=== PATIENT | male | born 1995 | race Caucasian/White ===

== ENCOUNTER 2023-01-05 21:08 | Emergency (ER) | payer OTHER ==
[2023-01-05] MEDS ORDERED: SODIUM CHLORIDE 0.9% 1,000 ML IV STA (21:41)
[2023-01-05 22:23] LABS: BASOPHILS # (AUTO) 0.1 10^3/uL (0.0-0.1); BASOPHILS % (AUTO) 0.7 %; EOSINOPHILS # (AUTO) 0.1 10^3/uL (0.0-0.7); EOSINOPHILS % (AUTO) 1.6 %; HCT - HEMATOCRIT 45.1 % (42.0-52.0); HGB - HEMOGLOBIN 15.8 g/dL (14.0-18.0); LYMPHOCYTES # (AUTO) 2.8 10^3/uL (1.5-3.5); LYMPHOCYTES % (AUTO) 41.4 %; MEAN CORPUSCULAR HEMOGLOBIN 30.6 pg (27.0-31.0); MEAN CORPUSCULAR VOLUME 87.4 fL (80.0-94.0); MEAN PLATELET VOLUME 10.2 fL (7.4-11.4); MONOCYTES # (AUTO) 0.7 10^3/uL (0.0-1.0); MONOCYTES % (AUTO) 10.8 %; NEUTROPHILS # (AUTO) 3.1 10^3/uL (1.5-6.6); NEUTROPHILS % (AUTO) 45.4 %; PLT - PLATELET COUNT 210 10^3/uL (130-450); RED BLOOD COUNT 5.16 10^6/uL (4.70-6.10); RED CELL DISTRIBUTION WIDTH 11.5 % (12.0-15.0); WHITE BLOOD COUNT 6.9 x10^3/uL (4.8-10.8)
[2023-01-05 22:32] LABS: CREATININE 1.1 mg/dL (0.6-1.2); POTASSIUM 3.4 mmol/L (3.5-5.0)
[2023-01-05] MEDS ORDERED: POTASSIUM CHLORIDE 20 MEQ TABLET PO STA (22:41)
--- NOTE | 2023-01-05 23:03 | ED Physician Documentation ---
History of Present Illness - Stated complaint Stated Complaint: DIZZY - Chief complaint Chief Complaint: General - History obtained from History obtained from: Patient - Additonal information Additional information: Patient is a 27-year-old male with a history of hypertension presenting for evaluation of feeling lightheaded for the past 2 weeks and noticing elevated blood pressure readings at home. Patient is active [employer]. He was recently restarted on hydrochlorothiazide 2 weeks ago. Since that time he has been feeling lightheaded particularly when he changes positions.He reports previously being on HCTZ for 1 month in May but never followed back up with the clinic.He has never been on any other antihypertensives. He denies chest pain, shortness of breath, abdominal pain, vomiting. Denies headache or syncope. Review of Systems Constitutional: denies: Fever Cardiac: denies: Chest pain / pressure Respiratory: denies: Dyspnea GI: denies: Abdominal Pain Musculoskeletal: denies: Extremity swelling Neurologic: denies: Syncope, Headache PD PAST MEDICAL HISTORY - Present Medications Home Medications: Ambulatory Orders Medication Instructions Recorded Confirmed Fluoxetine HCl [Prozac] 40 mg PO DAILY 01/05/23 01/05/23 hydroCHLOROthiazide [Hydrodiuril] 25 mg PO DAILY 01/05/23 01/05/23 - Allergies Allergies/Adverse Reactions: Allergies Allergy/AdvReac Type Severity Reaction Status Date / Time No Known Drug Allergies Allergy Verified 01/05/23 21:36 PD ED PE NORMAL - General General: Alert and oriented X 3, No acute distress, Well developed/nourished - HEENT HEENT: Atraumatic - Neck Neck: Supple, no meningeal sign - Cardiac Cardiac: RRR, No murmur - Respiratory Respiratory: No respiratory distress, Clear bilaterally - Abdomen Abdomen: Soft, Non tender - Derm Derm: Warm and dry - Extremities Extremities: No edema - Neuro Neuro: Alert and oriented X 3, No motor deficit, Normal speech Results - Vitals Vitals: Vital Signs - 24 hr 01/05/23 01/05/23 01/05/23 21:31 21:46 21:57 Temperature 36.2 C L Heart Rate 101 H 65 Heart Rate [ 89 Sitting] Heart Rate [ 92 Standing] Heart Rate [ 65 Supine] Respiratory 15 18 Rate Blood Pressure 173/112 H 153/99 H Blood Pressure 169/100 H [Sitting] Blood Pressure 157/111 H [Standing] Blood Pressure 153/99 H [Supine] O2 Saturation 99 98 01/05/23 01/05/23 22:30 23:03 Temperature Heart Rate 93 90 Heart Rate [ Sitting] Heart Rate [ Standing] Heart Rate [ Supine] Respiratory 15 23 Rate Blood Pressure 148/87 H 152/97 H Blood Pressure [Sitting] Blood Pressure [Standing] Blood Pressure [Supine] O2 Saturation 98 98 Oxygen O2 Source Room air - EKG (time done) 2152 EKG releavant findings:: EKG personally interpreted by author of this note. Relevant findings are: Rate 92, normal sinus rhythm, no STEMI, QTc 410 Rate: Rate (enter#) Rhythm: NSR Intervals: No: Prolonged QT Ischemia: No: ST elevation c/w ischemia Compare to prior EKG: Old EKG unavailable - Labs Labs: Laboratory Tests 01/05/23 01/05/23 22:15 22:15 WBC 6.9 RBC 5.16 Hgb 15.8 Hct 45.1 MCV 87.4 MCH 30.6 MCHC 35.0 RDW 11.5 L Plt Count 210 MPV 10.2 Neut # (Auto) 3.1 Lymph # (Auto) 2.8 [place] # (Auto) 0.7 Eos # (Auto) 0.1 Baso # (Auto) 0.1 Absolute Nucleated RBC 0.00 Nucleated RBC % 0.0 Sodium 138 Potassium 3.4 L Chloride 101 Carbon Dioxide 24 Anion Gap 13.0 BUN 23 H Creatinine 1.1 Estimated GFR (MDRD) 82 L Glucose 116 H Calcium 9.0 PD Medical Decision Making - ED course Complexity details: reviewed results, re-evaluated patient, d/w patient ED course: Patient is a 27-year-old male presenting for evaluation of elevated blood pressure and feeling lightheaded with standing for the past 2 weeks. He was recently started on hydrochlorothiazide.Initial blood pressure readings are elevated but patient does not have symptoms to suggest hypertensive emergency. CBC and chemistries were reviewed.Mild hypokalemia of 3.4 which was replaced orally. Patient is feeling better after IV fluids. His orthostatics did appear to be positive with a change in heart rate from to standing.I suspect that his symptoms are likely related to his HCTZ. I advised him to hold this medication and [facility] He has an appointment already scheduled for this coming Saturday and he is aware to call on Saturday to see if they can move up that appointment.I do think he would benefit from a different antihypertensive agent. His blood pressures here have improved into the 140s to 150 range and I do not think he needs to emergently be started on a different Medication tonight. Patient is counseled on concerning symptoms to return for. Departure - Departure Disposition: Home, Self Care Clinical Impression: Orthostatic lightheadedness, Hypertension Condition: Stable Instructions: ED Dizziness UKO, ED HTN Established Follow-Up: [facility] [Provider Group] Comments: I believe your symptoms today are related to the new blood pressure medication that you are taking. It can cause you to lose too much fluid which can make you feel dizzy and lightheaded especially when changing positions. At this time I would recommend not taking the hydrochlorothiazide until you are seen for follow-up at the [facility]. I would recommend that your PCP consider another medication to help you with your blood pressure. I would recommend making sure you are staying hydrated tomorrow and taking it easy when changing positions and would expect your symptoms to get better as you stop the medication. Your potassium was slightly low so we did give you a potassium pill.If at anytime your symptoms are worsening such as bad headache, chest pain, shortness of breath or feeling worse please consider return to the emergency department. Discharge Date/Time: 01/05/23 23:31
[2023-01-05 23:05] VITALS: BP 152/97
== END 2023-01-05 23:31 | disposition home or self-care (01) ==
LOC: ED 21:08
DX: I10 Essential (primary) hypertension (principal); R42 Dizziness and giddiness; E87.6 Hypokalemia
CPT/HCPCS: 36415; 80048; 85025; 93005; 99284; A9270

== ENCOUNTER 2023-05-23 07:55 | Outpatient (CLI) | payer OTHER | END 2023-05-23 07:56 | disposition home or self-care (01) | LOC: DI 07:55 | PROVIDERS: ATTEND Physician Assistant | DX: I10 Essential (primary) hypertension (principal) | CPT/HCPCS: 93306 ==